=== PATIENT | female | born 1995 | race Caucasian/White ===

== ENCOUNTER 2017-12-01 18:53 | Emergency (ER) | payer MEDICAID ==
[2017-12-01] MEDS ORDERED: BENZONATATE 100 MG CAPSULE PO ONE (19:07)
[2017-12-01] MEDS ORDERED: AZITHROMYCIN 500 MG TABLET PO ONE (19:07)
--- NOTE | 2017-12-01 19:13 | Emergency Department Record ---
History of Present Illness - General Chief Complaint: Cough Stated Complaint: MAYELIN,COUGH,DIZINES,HEADACHE,CHEST CONGESTION Time Seen by Provider: 12/01/17 19:03 Source: Patient Mode of Arrival: Ambulatory Limitations: No limitations - History of Present Illness Initial Comments: 22 yo female presents with 4 days of cough, productive sputum, sinus pressure, sore throat. No rash or diarrhea. She does vomit with excessive coughing. She is a smoker. She has subjective fevers. She has pressure headache in the frontal areas. MD Complaint: Cough, Nasal congestion, Rhinorrhea, Sinus pain, Sore throat -: Days(s) (4) Severity: Moderate Quality: Aching Consistency: Constant Improves With: Nothing Worsens With: Other Context: Sick contacts Associated Symptoms: Cough Treatments Prior to Arrival: None - Related Data Previous Rx's Medication Instructions Recorded Azithromycin [Zithromax] 250 mg PO DAILY #4 tab 12/01/17 Benzonatate [Tessalon] 1 cap PO Q8H PRN #20 cap 12/01/17 Allergies Allergy/AdvReac Type Severity Reaction Status Date / Time latex Allergy RASH Unverified 12/01/17 19:11 Review of Systems Constitutional: Reports: Fever, Malaise. Denies: Chills Eyes: Denies: Eye discharge, Eye pain, Photophobia, Vision change ENT: Reports: Congestion, Throat pain. Denies: Ear pain, Epistaxis Respiratory: Reports: Cough. Denies: Dyspnea, Hemoptysis, Stridor, Wheezes Cardiovascular: Denies: Chest pain, Palpitations, Syncope Endocrine: Denies: Fatigue Gastrointestinal: Reports: Nausea, Vomiting. Denies: Abdominal pain, Diarrhea Genitourinary: Denies: Dysuria, Urgency Musculoskeletal: Denies: Arthralgia, Back pain, Joint swelling, Myalgia, Neck pain Skin: Denies: Bruising, Change in color, Rash Neurological: Reports: Headache. Denies: Confusion, Numbness, Tingling, Vertigo , Weakness Psychiatric: Denies: Anxiety Hematological/Lymphatic: Denies: Blood Clots, Easy bleeding, Easy bruising, Swollen glands Physical Exam - General General Appearance: Alert, Oriented x3, Cooperative, No acute distress Limitations: No limitations - Head Head exam: Normal inspection - Eye Eye exam: Normal appearance, PERRL, Periorbital tenderness. negative: Conjunctival injection, Scleral icterus - ENT ENT exam: Normal exam, Mucous membranes moist Ear exam: Normal external inspection Nasal Exam: Discharge (clear). negative: Normal inspection Mouth exam: Normal external inspection Teeth exam: Normal inspection Throat exam: Normal inspection - Neck Neck exam: Normal inspection. negative: Lymphadenopathy, Tenderness, Thyromegaly - Respiratory Respiratory exam: Rhonchi. negative: Accessory muscle use, Decreased breath sounds, Prolonged expiratory, Respiratory distress, Stridor, Wheezes - Cardiovascular Cardiovascular Exam: Regular rate, Normal rhythm, Normal heart sounds Peripheral Pulses: 2+: Radial (R), Radial (L) - GI/Abdominal GI/Abdominal exam: Soft. negative: Tenderness - Rectal Rectal exam: Deferred - exam: Deferred - Extremities Extremities exam: Normal inspection - Back Back exam: Reports: Normal inspection, Full ROM. Denies: Muscle spasm, Rash noted, Tenderness - Neurological Neurological exam: Alert, Oriented X3 - Psychiatric Psychiatric exam: Normal affect, Normal mood - Skin Skin exam: Dry, Intact, Normal color, Warm Course Vital Signs 12/01/17 19:01 Temperature 98 F Pulse Rate [ 101 H Pulse Ox Probe] Respiratory 24 Rate Blood Pressure 109/78 [Left Arm] Pulse Ox 99 - Reevaluation(s) Reevaluation #1: Vitals reviewed 12/01/17 19:11 Disposition Disposition: Discharge Clinical Impression: Bronchitis Disposition: Home, Self-Care Condition: (1) Good Instructions: Acute Bronchitis (ED) Additional Instructions: Rest and stay well hydrated Be seen if worse, fever, short of breath Prescriptions: Azithromycin [Zithromax] 250 mg PO DAILY #4 tab Benzonatate [Tessalon] 1 cap PO Q8H PRN #20 cap PRN Reason: Cough Forms: Patient Portal Access Time of Disposition: 19:12 Quality - Quality Measures Quality Measures: N/A - Blood Pressure Screening Does Patient Have Any of the Following: No Blood Pressure Classification: Normal BP Reading Systolic Measurement: 109 Diastolic Measurement: 78 Screening for High Blood Pressure: < Normal BP, F/U Not Required > [[id number]]
== END 2017-12-01 19:19 | disposition home or self-care (01) ==
LOC: ER 18:53
DX: J20.9 Acute bronchitis, unspecified (principal); R51 Headache; R42 Dizziness and giddiness; R11.11 Vomiting without nausea
CPT/HCPCS: 99282